=== PATIENT | male | born 1960 | race Caucasian/White ===

== ENCOUNTER → 2021-10-12 | Outpatient (CLI) | payer MEDICARE ==
[~2021-10-12] MED LIST: BENTYL 20MG TAB20 MG PO; GLYBURIDE5 MG PO; ZOFRAN ODT 4 MG4 MG PO
== END ==
LOC: RAD 15:54
DX: M16.11 Unilateral primary osteoarthritis, right hip (principal); M47.816 Spondylosis without myelopathy or radiculopathy, lumbar region
CPT/HCPCS: 72100; 73502